=== PATIENT | male | born 1965 | race African-American/Black ===

== ENCOUNTER 2018-08-22 12:17 | Outpatient (CLI) | payer MEDICARE ==
[~2018-08-22 12:17] MED LIST: BENADRYL50 MG ORAL; PREDNISONE20 MG ORAL; ZANTAC150 MG ORAL
--- NOTE | 2018-08-22 17:00 | Diagnostic Imaging Report ---
Indication: Which 3-year-old male with chronic low back pain and spinal stenosis Technique: Sagittal T1 spin echo,, sagittal T2 PROPELLER, sagittal STIR PROPELLER, axial T1 and T2 fast spin-echo images of the lumbar spine Comparison: none Findings: Bony alignment is normal. Vertebral marrow signal is normal. Vertebral body heights are preserved. Conus medullaris terminates at the mid L1 level. At L2-3, there is generalized circumferential annular bulge, as well as broad-based central and right paracentral posterior disc protrusion. This results in mild narrowing the spinal canal and possible slight compromise of the right lateral recess. The neural foramina are preserved. The disc spaces preserved. At L3-4, there is generalized mild circumferential annular bulge, with more focal broad-based left paracentral and intraforaminal disc protrusion. This results and mild narrowing of the spinal canal. There is also mild to moderate compromise of the left neural foramen. There is bilateral facet arthrosis with fluid within the facet joints bilaterally. There is also some hypertrophy of the ligamenta flava bilaterally. The disc space is preserved. At L4-5, there is circumferential annular bulge, as well as broad-based central and equivocal left paracentral posterior disc protrusion with a high intensity zone and bulging of the posterior longitudinal ligament. This does not significantly narrow the spinal canal. There may be some compromise of the left lateral recess and left neural foramen, however. The right neural foramen is preserved. The disc space is preserved. At L5-S1, there is moderate to severe degenerative disc narrowing. There is circumferential annular bulge as well as broad-based posterior osteophyte complex. This does not significantly narrow the spinal canal, but there there is suggestion of mild to moderate compromise of the bilateral neural foramina as a result. The included extraspinal soft tissues are unremarkable. Impression: No acute bony trauma Degenerative changes as detailed on a level by level basis above
== END 2018-08-22 14:17 | disposition home or self-care (01) ==
LOC: MRI 12:17
DX: M54.16 Radiculopathy, lumbar region (principal); M51.26 Other intervertebral disc displacement, lumbar region
CPT/HCPCS: 72148